=== PATIENT | female | born 1975 | race Caucasian/White ===

== ENCOUNTER 2019-01-17 21:45 | Emergency (ER) | payer OTHER ==
[~2019-01-17] VITALS: Ht 167.6 cm; Wt 59.0 kg
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
[2019-01-17] MEDS ORDERED: METHADONE HCL10 MG ORAL (21:52)
[2019-01-17 22:10] VITALS: BP 138/96
--- NOTE | 2019-01-17 22:35 | NUR ---
ED Nurse Note: Assisted to go to bathroom, provided 2 cups of Juice. Pt is A/O X 4. NO C/O discomfort at this time, will continue to monitor.
--- NOTE | 2019-01-17 23:50 | NUR ---
ED Nurse Note: Pt asked to removed the IV, no complicate notied at this time.
[2019-01-18 00:17] LABS: BASOPHILS % (AUTO) 1.9 % (0.0-2.0); EOSINOPHILS % (AUTO) 1.7 % (0.0-3.0); HEMATOCRIT 40.7 % (37.0-47.0); HEMOGLOBIN 14.2 G/DL (12.0-16.0); LYMPHOCYTES % (AUTO) 46.4 % (20.0-45.0); MEAN CORPUSCULAR VOLUME 98 FL (80-99); MONOCYTES % (AUTO) 7.7 % (1.0-10.0); NEUTROPHILS % (AUTO) 42.3 % (45.0-75.0); PLATELET COUNT 162 K/UL (150-450); RED BLOOD COUNT 4.15 M/UL (4.20-5.40); RED CELL DISTRIBUTION WIDTH 11.4 % (11.6-14.8); WHITE BLOOD COUNT 4.9 K/UL (4.8-10.8)
[2019-01-18 00:21] LABS: APPEARANCE,URINE CLEAR; BILIRUBIN, URINE NEGATIVE (NEGATIVE); COLOR,URINE PALE YELLOW; GLUCOSE, URINE (UA) NEGATIVE (NEGATIVE); KETONES,URINE NEGATIVE (NEGATIVE); LEUKOCYTE ESTERASE ,URINE 1+ (NEGATIVE); NITRITE,URINE NEGATIVE (NEGATIVE); PH,URINE 7 (4.5-8.0); PROTEIN,URINE NEGATIVE (NEGATIVE); UROBILINOGEN,URINE NORMAL MG/DL (0.0-1.0)
[2019-01-18 00:26] LABS: ANION GAP 12 mmol/L (5-15); BLOOD UREA NITROGEN 11 mg/dL (7-18); CALCIUM 8.7 MG/DL (8.5-10.1); CARBON DIOXIDE 28 MMOL/L (21-32); CHLORIDE 104 MMOL/L (98-107); CREATININE 0.7 MG/DL (0.55-1.30); POTASSIUM 3.5 MMOL/L (3.5-5.1); SODIUM 144 MMOL/L (136-145)
[2019-01-18 00:31] LABS: ALANINE AMINOTRANSFERASE 75 U/L (12-78); ALBUMIN/GLOBULIN RATIO 1.1 (1.0-2.7); ALKALINE PHOSPHATASE 95 U/L (46-116); ASPARTATE AMINO TRANSFERASE 170 U/L (15-37); BILIRUBIN,TOTAL 0.5 MG/DL (0.2-1.0)
--- NOTE | 2019-01-18 02:29 | Emergency Room Report ---
History of Present Illness General Chief Complaint: Back Pain-No Injury Source: Patient Present Illness HPI Patient presents with reports that she has been having difficulty finding a place to stay Denies any headache denies any chest pain Patient had initially reported low back pain However later to me reports that she said that to the ambulance to be brought to the hospital Denies any focal weakness denies any vomiting or diarrhea Allergies: Coded Allergies: No Known Allergies (Unverified , 01/17/19) Patient History Past Medical History: see triage record Pertinent Family History: none Last Menstrual Period: unsure Now: No Reviewed Nursing Documentation: PMH: Agreed; PSxH: Agreed Nursing Documentation-PMH History Of Psychiatric Problem: Yes Review of Systems All Other Systems: negative except mentioned in HPI Physical Exam Vital Signs Date Time Temp Pulse Resp B/P (MAP) Pulse Ox O2 Delivery O2 Flow Rate FiO2 01/17/19 21:46 98.1 94 15 138/96 (110) 99 Room Air Sp02 EP Interpretation: reviewed, normal General Appearance: well appearing, no apparent distress Head: normocephalic, atraumatic Eyes: bilateral eye PERRL, bilateral eye EOMI ENT: normal pharynx Neck: full range of motion, supple Respiratory: lungs clear, no respiratory distress, no retraction Cardiovascular #1: regular rate, rhythm Gastrointestinal: normal bowel sounds, non tender Genitourinary: no CVA tenderness Musculoskeletal: normal inspection Neurologic: alert, oriented x3, responsive Skin: other - Somewhat disheveled appearance Lymphatic: no adenopathy Medical Decision Making Diagnostic Impression: Primary Impression: Alcohol abuse Additional Impression: Encounter for medical screening examination ER Course Upon initial presentation blood work and further testing was performed Patient is medically cleared with evidence of alcohol ingestion Hemodynamically stable Upon evaluation for disposition patient reports that she would like placement And requires further placement Medically cleared, pending placement to intermediate Labs Test 01/17/19 23:55 White Blood Count 4.9 K/UL (4.8-10.8) Red Blood Count 4.15 M/UL (4.20-5.40) Hemoglobin 14.2 G/DL (12.0-16.0) Hematocrit 40.7 % (37.0-47.0) Mean Corpuscular Volume 98 FL (80-99) Mean Corpuscular Hemoglobin 34.3 PG (27.0-31.0) Mean Corpuscular Hemoglobin Concent 35.0 G/DL (32.0-36.0) Red Cell Distribution Width 11.4 % (11.6-14.8) Platelet Count 162 K/UL (150-450) Mean Platelet Volume 6.7 FL (6.5-10.1) Neutrophils (%) (Auto) 42.3 % (45.0-75.0) Lymphocytes (%) (Auto) 46.4 % (20.0-45.0) Monocytes (%) (Auto) 7.7 % (1.0-10.0) Eosinophils (%) (Auto) 1.7 % (0.0-3.0) Basophils (%) (Auto) 1.9 % (0.0-2.0) Urine Color Pale yellow Urine Appearance Clear Urine pH 7 (4.5-8.0) Urine Specific [place] 1.010 (1.005-1.035) Urine Protein Negative (NEGATIVE) Urine Glucose (UA) Negative (NEGATIVE) Urine Ketones Negative (NEGATIVE) Urine Blood Negative (NEGATIVE) Urine Nitrite Negative (NEGATIVE) Urine Bilirubin Negative (NEGATIVE) Urine Urobilinogen Normal MG/DL (0.0-1.0) Urine Leukocyte Esterase 1+ (NEGATIVE) Urine RBC 0-2 /HPF (0 - 2) Urine WBC 2-4 /HPF (0 - 2) Urine Squamous Epithelial Cells Few /LPF (NONE/OCC) Urine Bacteria Few /HPF (NONE) Urine Mucus Occasional /LPF Urine HCG, Qualitative Negative (NEGATIVE) Sodium Level 144 MMOL/L (136-145) Potassium Level 3.5 MMOL/L (3.5-5.1) Chloride Level 104 MMOL/L (98-107) Carbon Dioxide Level 28 MMOL/L (21-32) Anion Gap 12 mmol/L (5-15) Blood Urea Nitrogen 11 mg/dL (7-18) Creatinine 0.7 MG/DL (0.55-1.30) Estimat Glomerular Filtration Rate > 60 mL/min (>60) Glucose Level 95 MG/DL (74-106) Calcium Level 8.7 MG/DL (8.5-10.1) Total Bilirubin 0.5 MG/DL (0.2-1.0) Aspartate Amino Transf (AST/SGOT) 170 U/L (15-37) Alanine Aminotransferase (ALT/SGPT) 75 U/L (12-78) Alkaline Phosphatase 95 U/L (46-116) Total Protein 7.6 G/DL (6.4-8.2) Albumin 4.0 G/DL (3.4-5.0) Globulin 3.6 g/dL Albumin/Globulin Ratio 1.1 (1.0-2.7) Salicylates Level 2.5 ug/mL (2.8-20) Urine Opiates Screen Negative (NEGATIVE) Acetaminophen Level < 2 MCG/ML (10-30) Urine Barbiturates Screen Negative (NEGATIVE) Phencyclidine (PCP) Screen Negative (NEGATIVE) Urine Amphetamines Screen Positive (NEGATIVE) Urine Benzodiazepines Screen Negative (NEGATIVE) Urine Cocaine Screen Negative (NEGATIVE) Urine Marijuana (THC) Screen Negative (NEGATIVE) Serum Alcohol 380 mg/dL Last Vital Signs Date Time Temp Pulse Resp B/P (MAP) Pulse Ox O2 Delivery O2 Flow Rate FiO2 01/17/19 22:10 98.1 91 15 138/96 99 Room Air Status: improved Disposition: HOME, SELF-CARE Condition: Improved Referrals: NON PHYSICIAN (PCP) Additional Instructions: Patient is provided with the discharge instructions notified to follow up with primary doctor in the next 2-3 days otherwise return to the er with any worsening symptoms. Please note that this report is being documented using [employer]OL technology. This can lead to erroneous entry secondary to incorrect interpretation by the dictating instrument. Dallin Smith DO Jan 18, 2019 02:29
--- NOTE | 2019-01-18 03:40 | NUR ---
ED Nurse Note: Pt is resting in bed quietly, will continue to monitor.
--- NOTE | 2019-01-18 06:30 | NUR ---
ED Nurse Note: Pt is A/O X 4, VSS. Waiting for a residential placement. Called [facility]/ [phone]. Left massage. Called [facility] / [phone], office will open after 07:00 am. will endorse to dayshift to continue try.
--- NOTE | 2019-01-18 07:15 | NUR ---
ED Nurse Note: Pt is sleeping at this time, will continue to monitor.
[2019-01-18 08:08] VITALS: BP 132/88
[2019-01-18 08:26] VITALS: BP 132/88
--- NOTE | 2019-01-18 08:26 | NUR ---
ED Nurse Note: Pt is ready to be discharged at this time. [employer] form filled out, signed by pt, RN, and ERMD. Pt is independent, AOx4, VSS. Decided to go to [facility]. Pt ambulates with steady gait. Left with all belongings.
== END 2019-01-18 08:26 | disposition home or self-care (01) ==
LOC: EDBD 21:45 → EMR 21:55
DX: F10.10 Alcohol abuse, uncomplicated (principal)
CPT/HCPCS: 36415; 80053; 80307; 80329; 81003; 81025; 85025; 99284

== ENCOUNTER 2019-11-24 18:26 | Emergency (ER) | payer OTHER ==
[~2019-11-24] VITALS: Ht 167.6 cm; Wt 61.2 kg
[~2019-11-24 18:26] MED LIST: METHADONE HCL10 MG ORAL
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
[2019-11-24] MEDS ORDERED: TYLENOL EXTRA500 MG ORAL (18:29)
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
[2019-11-24 18:38] VITALS: BP 178/95
--- NOTE | 2019-11-24 18:40 | NUR ---
ED Nurse Note: Pt cleared by health care Provider for discharge. DC instructions/prescription was given and explained to pt and verbalized understanding of teachings. All medical deviecs such as ID band removed. Pt is AAO x4, ambulatory and left with all personal belongings.
[2019-11-24 18:42] VITALS: BP 178/95
== END 2019-11-24 18:40 | disposition home or self-care (01) ==
LOC: EDBD 18:26 → EMR 18:33
DX: M25.561 Pain in right knee (principal); G40.909 Epilepsy, unspecified, not intractable, without status epilepticus; M25.521 Pain in right elbow; Y09 Assault by unspecified means; Z59.0 Homelessness
CPT/HCPCS: 99282

== ENCOUNTER 2020-03-16 03:08 | Emergency (ER) | payer OTHER ==
[~2020-03-16] VITALS: Ht 170.2 cm; Wt 63.5 kg
[~2020-03-16 03:08] MED LIST changes: +TYLENOL EXTRA500 MG ORAL
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
[2020-03-16 03:13] VITALS: BP 139/82
--- NOTE | 2020-03-16 03:24 | NUR ---
ED Nurse Note: Xray at bedside
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
[2020-03-16] MEDS ORDERED: NAPROXEN500 M2 ORAL (03:54)
[2020-03-16 04:40] VITALS: BP 128/79
--- NOTE | 2020-03-16 04:40 | NUR ---
ER DISCHARGE NOTE: Patient is cleared to be discharged per ERMD, pt is aox4, on room air, with stable vital signs. pt was given dc and prescription instructions, pt was able to verbalize understanding, pt id band removed. pt is able to ambulate with cruthces. pt took all belongings. pt stable upon discharge.
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
--- NOTE | 2020-03-16 16:26 | Diagnostic Imaging Report ---
Indication: Right knee pain Technique: 3 views of the right knee Comparison: None Findings: No acute fractures. No dislocations. The joint spaces are preserved. Impression: Negative
== END 2020-03-16 04:40 | disposition home or self-care (01) ==
LOC: EDBD 03:08 → EMR 03:32
DX: S80.01XA Contusion of right knee, initial encounter (principal); S80.211A Abrasion, right knee, initial encounter; V03.10XA Pedestrian on foot injured in collision with car, pick-up truck or van in traffic accident, initial encounter; Y92.410 Unspecified street and highway as the place of occurrence of the external cause; F17.210 Nicotine dependence, cigarettes, uncomplicated; F31.9 Bipolar disorder, unspecified; G40.909 Epilepsy, unspecified, not intractable, without status epilepticus
CPT/HCPCS: 73562; 73610; Z7502; 99284